=== PATIENT | male | born 1995 | race Caucasian/White ===

== ENCOUNTER 2017-10-22 20:05 | Inpatient (IN) | payer SELFPAY ==
[~2017-10-22] VITALS: Ht 172.7 cm; Wt 65.0 kg
[2017-10-22 20:12] VITALS: BP 172/110; PULSE 73; RESP 20; TEMP 98.1; O2SAT 100
[2017-10-22 20:22] VITALS: O2SAT 99
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
[2017-10-22] MEDS ORDERED: GENTAMICIN INJ 80 MG in SODIUM CHLORIDE 0.9% INJ 100 ML IV ONE (20:30)
[2017-10-22] MEDS ORDERED: ONDANSETRON HCL 4 MG/2 ML VIAL IV PUSH ONE (20:30)
[2017-10-22] MEDS ORDERED: GENTAMICIN 80 MG PREMIX 100 ML IV ONE (20:30)
[2017-10-22] MEDS ORDERED: ceFAZolin 2 GM PREMIX 50 ML IV ONE (20:30)
[2017-10-22] MEDS ORDERED: DIPHTH/TETANUS/ACEL PERTUSSIS (BOOSTER) 0.5 ML VIAL/PFS IM ONE (20:30)
[2017-10-22] MEDS ORDERED: SODIUM CHLORIDE 0.9% FLUSH 10 ML FLUSH IVF PRN (20:30)
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
[2017-10-22] MEDS ORDERED: IOHEXOL 350 MG/ML 10 ML VIAL (for RAD DIAG) IVCONTRAST ONE (20:46)
[2017-10-22 20:52] LABS: AUTOMATED NEUTROPHIL # 11.5 TH/MM3 (1.8-7.7); BASOPHIL # 0.1 TH/MM3 (0-0.2); BASOPHIL % 0.5 % (0.0-2.0); EOSINOPHIL # 0.4 TH/MM3 (0-0.4); EOSINOPHIL % 2.2 % (0.0-4.0); HEMATOCRIT 47.8 % (39.0-51.0); HEMOGLOBIN 16.6 GM/DL (13.0-17.0); LYMPH % 26.8 % (9.0-44.0); MEAN CELL VOLUME 93.2 FL (80.0-100.0); MEAN CORPUSCULAR HEMOGLOBIN 32.3 PG (27.0-34.0); MEAN CORPUSCULAR HGB CONC 34.7 % (32.0-36.0); MEAN PLATELET VOLUME 7.1 FL (7.0-11.0); MONO % 9.6 % (0.0-8.0); MONOCYTE # 1.8 TH/MM3 (0-0.9); NEUT % 60.9 % (16.0-70.0); PLATELET COUNT 393 TH/MM3 (150-450); RED BLOOD COUNT 5.13 MIL/MM3 (4.50-5.90); WHITE BLOOD COUNT 18.8 TH/MM3 (4.0-11.0)
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
[2017-10-22] MEDS ORDERED: POTASSIUM CHLOR 10 MEQ PREMIX 100 ML IV ONE (21:00)
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
[2017-10-22 21:12] VITALS: BP 185/91; PULSE 65; RESP 16; O2SAT 99
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
[2017-10-22] MEDS ORDERED: MORPHINE SULFATE 2 MG/ML INJ IV PUSH ONE (21:45)
[2017-10-22 22:26] VITALS: BP 169/81; PULSE 52; RESP 20; O2SAT 97
[2017-10-22] MEDS ORDERED: MISCELLANEOUS NURSING INFORMATION XX SCH (22:30)
[2017-10-22] MEDS ORDERED: CHLORHEXIDINE GLUCONATE 2 % 1 PACK (2 CLOTHS) TOP PRN (22:30)
[2017-10-22] MEDS ORDERED: ACETAMINOPHEN 1000 MG/100 ML 100 ML IV SCH (22:30)
[2017-10-22] MEDS ORDERED: ONDANSETRON HCL 4 MG/2 ML VIAL IV PUSH PRN (22:30)
[2017-10-22] MEDS ORDERED: HYDROmorphone HCL PF 2 MG/ML VIAL IV PRN (22:45)
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
[2017-10-22] MEDS: HYDROmorphone HCL PF 2 MG/ML VIAL IV PRN (23:07)
[2017-10-22] MEDS: ACETAMINOPHEN 1000 MG/100 ML 100 ML IV SCH (23:08)
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
[2017-10-22 23:12] VITALS: BP 160/84; PULSE 56; RESP 18; O2SAT 98
[2017-10-23] MEDS: LACTATED RINGER'S 1000 ML INJ 1,000 ML IV SCH ×4 (00:53→23:01)
[2017-10-23 01:14] VITALS: BP 175/79; PULSE 68; RESP 16; O2SAT 96
[2017-10-23] MEDS: HYDROmorphone HCL PF 2 MG/ML VIAL IV PRN ×2 (03:24→07:45)
[2017-10-23 04:00] VITALS: BP 174/83; PULSE 53; RESP 16; O2SAT 97
[2017-10-23] MEDS ORDERED: CHLORHEXIDINE GLUCONATE 2 % 1 PACK (2 CLOTHS) TOP SCH (04:00)
[2017-10-23 04:20] LABS: AUTOMATED NEUTROPHIL # 16.4 TH/MM3 (1.8-7.7); BASOPHIL % 0.2 % (0.0-2.0); EOSINOPHIL % 0.1 % (0.0-4.0); HEMATOCRIT 45.1 % (39.0-51.0); HEMOGLOBIN 15.9 GM/DL (13.0-17.0); LYMPH % 8.1 % (9.0-44.0); LYMPHOCYTE # 1.7 TH/MM3 (1.0-4.8); MEAN CELL VOLUME 93.1 FL (80.0-100.0); MEAN CORPUSCULAR HEMOGLOBIN 32.8 PG (27.0-34.0); MEAN CORPUSCULAR HGB CONC 35.2 % (32.0-36.0); MEAN PLATELET VOLUME 7.4 FL (7.0-11.0); MONO % 12.5 % (0.0-8.0); MONOCYTE # 2.6 TH/MM3 (0-0.9); NEUT % 79.1 % (16.0-70.0); PLATELET COUNT 325 TH/MM3 (150-450); RED BLOOD COUNT 4.85 MIL/MM3 (4.50-5.90); RED CELL DISTRIBUTION WIDTH 12.8 % (11.6-17.2); WHITE BLOOD COUNT 20.8 TH/MM3 (4.0-11.0)
[2017-10-23 04:30] LABS: BICARBONATE 27.7 MEQ/L (21.0-32.0); CREATININE 0.9 MG/DL (0.60-1.30)
[2017-10-23] MEDS: ACETAMINOPHEN 1000 MG/100 ML 100 ML IV SCH ×3 (05:00→23:00)
[2017-10-23 06:26] VITALS: BP 175/73; PULSE 55; RESP 16; O2SAT 98
[2017-10-23 07:05] VITALS: BP 175/73; PULSE 70; RESP 18; O2SAT 97
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
[2017-10-23] MEDS: DOCUSATE SODIUM 100 MG CAP PO SCH ×2 (09:00→21:00)
[2017-10-23 09:19] LABS: BANDS 5 % (0-6); LYMPHOCYTES 5 % (9-44); MONOCYTES 10 % (0-8); NEUTROPHIL # MANUAL DIFF 17.7 TH/MM3 (1.8-7.7); POLYS (SEG NEUTROPHILS) 80 % (16-70)
[2017-10-23 10:02] VITALS: BP 157/67; TEMP 98.4
[2017-10-23] MEDS ORDERED: fentaNYL CITRATE 250 MCG/5 ML AMP ONE ×2 (10:45)
[2017-10-23] MEDS ORDERED: MORPHINE SULFATE 4 MG/ML INJ ONE (10:53)
[2017-10-23] MEDS ORDERED: GENTAMICIN SULFATE 80 MG/2 ML VIAL ONE (11:04)
[2017-10-23] MEDS ORDERED: ONDANSETRON HCL 4 MG/2 ML VIAL IV ONE (12:00)
[2017-10-23] MEDS ORDERED: STERILE WATER FOR INJECTION 20 ML VIAL IV ONE (12:00)
[2017-10-23] MEDS ORDERED: DEXAMETHASONE SOD PHOS 4 MG/ML VIAL IV ONE (12:00)
[2017-10-23] MEDS ORDERED: PROPOFOL 200 MG/20 ML AMP IV ONE (12:00)
[2017-10-23] MEDS ORDERED: NEOSTIGMINE 5 MG/5 ML SYRINGE IV PUSH ONE (12:00)
[2017-10-23] MEDS ORDERED: LACTATED RINGER'S 1000 ML INJ 1,000 ML IV ONE (12:00)
[2017-10-23] MEDS ORDERED: LIDOCAINE HCL 1% PF 5 ML SYRINGE OTHER ONE (12:00)
[2017-10-23] MEDS ORDERED: GLYCOPYRROLATE 1 MG/5 ML SYRINGE IV PUSH ONE (12:00)
[2017-10-23] MEDS ORDERED: ROCURONIUM INJ 50 MG/5 ML SYRINGE IV PUSH ONE (12:00)
[2017-10-23] MEDS ORDERED: VANCOMYCIN HCL 1000 MG VIAL IV ONE (12:03)
[2017-10-23] MEDS ORDERED: VANCOMYCIN 1,000 MG/NS 250 ML IV ONE ×2 (12:15)
--- NOTE | 2017-10-23 12:23 | PD.OP ---
cc: Alexander Flores MD Operative Report Date of Surgery: Oct 23, 2017 Preoperative Diagnosis: Open right tibia shaft fracture, closed right ankle medial malleolus fracture Postoperative Diagnosis: Procedure: Irrigation and debridement of open right tibia fracture, intramedullary nail fixation right tibia, stress exam of syndesmosis under anesthesia, close treatment of right ankle medial malleolus fracture Surgeon: Alexander Flores Electrical Transmission Engineer(s): BEBE Hough PA-C The surgical procedure was assisted by my physician medical receptionist medical assistant. My P.A. presence was necessary throughout this case for the manipulation and positioning of the surgical extremity. My P.A. was assisting me throughout the duration of this procedure. The skill set of a physician medical receptionist medical assistant was medically necessary to complete this procedure. During the surgical case the surgical assistant was working at the back table and the physician medical receptionist medical assistant was directly assisting me. Operation and Findings: Implants: ITS [10]mm x [330]mm tibial nail Plan of activity: Nonweightbearing Patient was seen and examined preoperatively. An informed consent was obtained from patient after detailed discussion of risk and benefits. Risks of surgery include bleeding, infection, painful hardware, nonunion, malunion, leg length discrepancy, need for hardware removal, and medical complications associated with anesthesia including blood clots, stroke, heart attack, and were discussed. Operative site was marked. Patient was brought to the operating room placed on or table. Patient received IV antibiotics and was given IV sedation GETA. Operative leg was prepped with alcohol Hibiclens and draped in usual sterile fashion. Timeout procedure was performed Procedure began irrigation and debridement of open fracture. Of the dramatic laceration was extended proximally and distally. Overall the wound appeared to be very clean. Skin subcutaneous tissue and fascia were sharply debrided. Curettes were used to debride bone. Wound was now thoroughly irrigated with 3 L of sterile saline. Next attention was turned towards reduction of fracture. 2 small incisions were made around the fracture site. A percutaneous clamp was placed. This was a segmental type fracture. An additional clamp was placed along the distal fracture. Traction was applied. Fracture was reduced. The fracture reduced and excellent alignment was achieved. Fracture clamp was used to aid in reduction. Next a 3 cm incision was made proximal to the patella. Quadriceps tendon was split in line with fibers. Cannulas were placed in the patellofemoral joint to protect the articular surface at all times. A guidepin was placed into the tibia and advanced in the tibial canal. Fluoroscopy was used to confirm appropriate guidepin placement. An opening reamer was used to open the tibial canal. A ball-tipped guidewire was advanced down the tibial canal. Guidepin was passed across the fracture site into the center of the distal tibia. Fluoroscopy confirmed guidepin placement. The nail length was now measured. The fracture was now held in a reduced position and the canal was reamed. The canal was reamed up to appropriate size. A ITS nail was now selected. Next the nail was fully seated. Using perfect [place] technique 2 distal interlocking screws were placed. Using the insertion handle as a guide 2 proximal interlocking screws were placed. Fluoroscopy confirmed excellent of fracture with well-placed hardware. Incisions and the knee joint were thoroughly irrigated with sterile saline. The traumatic laceration was closed with 3-0 PDS and 3-0 nylon. Fascia was closed with #1 Vicryl, subcutaneous tissues closed with 3-0 Vicryl and skin was closed with chirag. Sterile dressings were applied. Patient was awakened and transferred to recovery in stable condition. Alexanedr Flores MD Oct 23, 2017 12:23
[2017-10-23] MEDS ORDERED: diphenhydrAMINE HCL 25 MG CAP PO PRN (12:30)
[2017-10-23] MEDS ORDERED: Post-op Orders (for Pharmacy) XX ONE (12:30)
[2017-10-23] MEDS ORDERED: DO NOT ADM ANY ANTICOAGULANT DRUGS PRN (12:51)
[2017-10-23] MEDS: GENTAMICIN 80 MG PREMIX 100 ML IV SCH ×2 (13:00→22:59)
[2017-10-23] MEDS: CALCIUM/VITAMIN D 250 MG/125 U TAB PO SCH (13:00)
[2017-10-23] MEDS ORDERED: ENALAPRILAT 1.25 MG/ML VIAL ONE (13:03)
[2017-10-23] MEDS ORDERED: *morphine SULFATE 4 MG/ML PERIprocedure ONLY ONE ×2 (13:08→13:51)
[2017-10-23] MEDS ORDERED: *MEPERIDINE 25 MG INJ VIAL PERIprocedural Use ONLY ONE (13:16)
--- NOTE | 2017-10-23 13:42 | RADRPT ---
EXAM DATE/TIME: 10/23/2017 12:13 [facility] COMPARISON: TIBIA/FIBULA RIGHT (AP/LAT), October 22, 2017, 20:59. INDICATIONS : Right tibia IM gail. MEDICAL HISTORY : None. SURGICAL HISTORY : None. ENCOUNTER: Initial ACUITY: 1 day PAIN SCORE: Non-responsive. LOCATION: Right tibia FINDINGS: Status post internal fixation of the tibia. There is good position and alignment of fracture fragment s. There is an intramedullary gail in place. CONCLUSION: Good position and alignment on this postoperative study. Gualberto Pierre MD on October 23, 2017 at 13:40 Board Certified Radiologist. This report was verified electronically.
[2017-10-23] MEDS: KETOROLAC TROMETHAMINE 30 MG/ML (IVP) VIAL IVP SCH ×2 (14:00→23:00)
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
[2017-10-23] MEDS ORDERED: HYDROmorphone HCL PF 2 MG/ML VIAL ONE (14:32)
[2017-10-23] MEDS: ceFAZolin 2 GM PREMIX 50 ML IV SCH (19:59)
[2017-10-23 20:10] VITALS: BP 149/58; PULSE 86; RESP 16; TEMP 98.1; O2SAT 97
[2017-10-23] MEDS: MORPHINE SULFATE 4 MG/ML INJ IV PUSH PRN (20:42)
[2017-10-24] VITALS (9 sets, daily range): BP systolic 117–161; BP diastolic 47–82; PULSE 55–85; RESP 16–19; TEMP 97.4–99.1; O2SAT 97–100
[2017-10-24] MEDS: MORPHINE SULFATE 4 MG/ML INJ IV PUSH PRN ×3 (03:36→21:44)
[2017-10-24] MEDS: ceFAZolin 2 GM PREMIX 50 ML IV SCH ×3 (03:37→17:56)
[2017-10-24 04:38] LABS: BICARBONATE 28.1 MEQ/L (21.0-32.0); CALCIUM 8.5 MG/DL (8.5-10.1); CREATININE 0.77 MG/DL (0.60-1.30)
[2017-10-24 04:42] LABS: AUTOMATED NEUTROPHIL # 7.9 TH/MM3 (1.8-7.7); BASOPHIL % 0.3 % (0.0-2.0); EOSINOPHIL # 0.4 TH/MM3 (0-0.4); EOSINOPHIL % 3.3 % (0.0-4.0); HEMATOCRIT 36.3 % (39.0-51.0); HEMOGLOBIN 12.8 GM/DL (13.0-17.0); LYMPH % 20.3 % (9.0-44.0); LYMPHOCYTE # 2.6 TH/MM3 (1.0-4.8); MEAN CELL VOLUME 93.3 FL (80.0-100.0); MEAN CORPUSCULAR HEMOGLOBIN 32.9 PG (27.0-34.0); MEAN CORPUSCULAR HGB CONC 35.3 % (32.0-36.0); MEAN PLATELET VOLUME 7.1 FL (7.0-11.0); MONO % 14.5 % (0.0-8.0); MONOCYTE # 1.9 TH/MM3 (0-0.9); NEUT % 61.6 % (16.0-70.0); PLATELET COUNT 284 TH/MM3 (150-450); RED BLOOD COUNT 3.89 MIL/MM3 (4.50-5.90); RED CELL DISTRIBUTION WIDTH 12.7 % (11.6-17.2); WHITE BLOOD COUNT 12.9 TH/MM3 (4.0-11.0)
[2017-10-24] MEDS: ACETAMINOPHEN 1000 MG/100 ML 100 ML IV SCH ×4 (05:00→23:00)
[2017-10-24] MEDS: ACETAMINOPHEN/HYDROcodone 325 MG/10 MG TAB PO PRN ×4 (06:12→20:18)
[2017-10-24] MEDS: GENTAMICIN 80 MG PREMIX 100 ML IV SCH ×3 (06:13→20:18)
[2017-10-24] MEDS: KETOROLAC TROMETHAMINE 30 MG/ML (IVP) VIAL IVP SCH (06:14)
[2017-10-24] MEDS ORDERED: XARE10TA PO (06:53)
[2017-10-24] MEDS ORDERED: HYDR-3580 PO (06:53)
[2017-10-24] MEDS: DOCUSATE SODIUM 100 MG CAP PO SCH ×2 (09:15→20:18)
[2017-10-24] MEDS: CALCIUM/VITAMIN D 250 MG/125 U TAB PO SCH ×3 (09:16→17:57)
--- NOTE | 2017-10-24 09:20 | PD.ORT.PN ---
Subjective Subjective Remarks POD 1 s/p IMN right tibia s/p right medial malleolus fx treated nonop doing well. pain controlled. ouit of bed with walker. overall no complaints Objective Vitals Vital Signs Date Time Temp Pulse Resp B/P (MAP) Pulse Ox O2 Delivery O2 Flow Rate FiO2 10/24/17 08:00 98.1 55 18 129/57 (81) 99 10/24/17 04:10 98.8 67 16 131/61 (84) 99 10/24/17 00:05 99.1 80 16 142/68 (92) 98 10/23/17 20:10 98.1 86 16 149/58 (88) 97 10/23/17 18:00 54 16 132/60 (84) 94 Room Air 10/23/17 17:00 56 16 144/65 (91) 93 Room Air 10/23/17 15:45 98.2 80 14 139/63 (88) 93 Nasal Cannula 3 10/23/17 15:30 98.2 85 14 185/77 (113) 94 Nasal Cannula 3 10/23/17 15:15 98.2 77 14 161/73 (102) 92 Nasal Cannula 3 10/23/17 15:00 98.2 57 14 167/69 (101) 92 Nasal Cannula 3 10/23/17 14:45 98.2 61 14 164/76 (105) 92 Nasal Cannula 3 10/23/17 14:30 98.2 83 14 163/74 (103) 96 Nasal Cannula 3 10/23/17 14:15 98.2 59 14 164/79 (107) 93 Nasal Cannula 3 10/23/17 14:00 98.2 66 14 163/77 (105) 93 Nasal Cannula 3 10/23/17 13:45 98.2 61 14 168/78 (108) 100 Nasal Cannula 3 10/23/17 13:30 98.2 61 14 174/85 (114) 100 Nasal Cannula 3 10/23/17 13:15 98.2 63 14 170/86 (114) 100 Nasal Cannula 3 10/23/17 13:00 98.2 61 14 183/91 (121) 100 Nasal Cannula 3 10/23/17 12:52 98.2 69 14 155/74 (101) 100 Nasal Cannula 3 10/23/17 10:02 98.4 68 20 157/67 (97) 98 I/O 10/23/17 10/23/17 10/23/17 10/24/17 10/24/17 10/24/17 07:00 15:00 23:00 07:00 15:00 23:00 Intake Total 300 ml 1300 ml 1027 ml 360 ml Output Total 350 ml 75 ml 800 ml Balance -50 ml 1225 ml 227 ml 360 ml Intake Oral 600 ml 360 ml IV Total 300 ml 427 ml Other 1300 ml Output Urine Total 350 ml 800 ml Estimated Blood Loss 75 ml # Voids 2 2 # Bowel Movements 0 0 Result Diagram: 10/24/17 0336 10/24/17 0336 Imaging Last [address] 10/22/172016 Signed Impressions: Service Date/Time: Sunday, October 22, 2017 20:36 - CONCLUSION: 1. Negative noncontrast CT brain. Jaison Sanchez MD Chest CT 10/22/172016 Signed Impressions: Service Date/Time: Sunday, October 22, 2017 20:41 - CONCLUSION: Negative trauma CT thorax. Jaison Sanchez MD Cervical Spine CT 10/22/172016 Signed Impressions: Service Date/Time: Sunday, October 22, 2017 20:36 - CONCLUSION: No evidence of compression deformity, fracture, or spondylolisthesis. Jaison Sanchez MD Abdomen/Pelvis CT 10/22/172016 Signed Impressions: Service Date/Time: Sunday, October 22, 2017 20:41 - CONCLUSION: 1. Negative trauma CT abdomen/pelvis. Jaison Sanchez MD Objective Remarks RLE: dressings clean and dry. intact. +short leg splint. NVI Assessment & Plan Assessment and Plan 1) Right open tibia and fibula midshaft segmental fractures s/p IMN - POD 1 -NWB -maintain splint at all times -daily dressing changes of knee -will need 48hrs of IV Abx due to open fracture -plan for DC home Friday after Abx completed -f/u with Jose or PA in 2 weeks Vernon Dunne/[employer] Oct 24, 2017 09:20
[2017-10-24] MEDS ORDERED: WALKER/ADULT/FO1 MIS (09:21)
[2017-10-24] MEDS ORDERED: ENOXAPARIN SODIUM 40 MG/0.4 ML SYRINGE SQ SCH (12:00)
[2017-10-24] MEDS: LACTATED RINGER'S 1000 ML INJ 1,000 ML IV SCH ×3 (13:03→20:15)
--- NOTE | 2017-10-24 14:29 | HHI.PR ---
Objective Vitals/I&O Vital Signs Date Time Temp Pulse Resp B/P (MAP) Pulse Ox O2 Delivery O2 Flow Rate FiO2 10/24/17 12:00 97.4 64 18 117/47 (70) 98 10/23/17 18:00 Room Air 10/23/17 15:45 3 Labs Laboratory Tests Test 10/24/17 03:36 White Blood Count 12.9 Red Blood Count 3.89 Hemoglobin 12.8 Hematocrit 36.3 Mean Corpuscular Volume 93.3 Mean Corpuscular Hemoglobin 32.9 Mean Corpuscular Hemoglobin Concent 35.3 Red Cell Distribution Width 12.7 Platelet Count 284 Mean Platelet Volume 7.1 Neutrophils (%) (Auto) 61.6 Lymphocytes (%) (Auto) 20.3 Monocytes (%) (Auto) 14.5 Eosinophils (%) (Auto) 3.3 Basophils (%) (Auto) 0.3 Neutrophils # (Auto) 7.9 Lymphocytes # (Auto) 2.6 Monocytes # (Auto) 1.9 Eosinophils # (Auto) 0.4 Basophils # (Auto) 0.0 CBC Comment DIFF FINAL Differential Comment Blood Urea Nitrogen 13 Creatinine 0.77 Random Glucose 96 Calcium Level 8.5 Sodium Level 136 Potassium Level 4.0 Chloride Level 102 Carbon Dioxide Level 28.1 Anion Gap 6 Estimat Glomerular Filtration Rate 126 Radiology Last Impressions Tibia/Fibula X-Ray 10/23/17 0000 Signed Impressions: Service Date/Time: October 12:13 - CONCLUSION: Good position and alignment on this postoperative study. Gualberto Pierre MD Head CT 10/22/172016 Signed Impressions: Service Date/Time: Sunday, October 22, 2017 20:36 - CONCLUSION: 1. Negative noncontrast CT brain. Jaison Sanchez MD Chest CT 10/22/172016 Signed Impressions: Service Date/Time: Sunday, October 22, 2017 20:41 - CONCLUSION: Negative trauma CT thorax. Jaison Sanchez MD Cervical Spine CT 10/22/172016 Signed Impressions: Service Date/Time: Sunday, October 22, 2017 20:36 - CONCLUSION: No evidence of compression deformity, fracture, or spondylolisthesis. Jaison Sanchez MD Abdomen/Pelvis CT 10/22/172016 Signed Impressions: Service Date/Time: Sunday, October 22, 2017 20:41 - CONCLUSION: 1. Negative trauma CT abdomen/pelvis. Jaison Sanchez MD Lower Extremity CT 10/22/17 0000 Signed Impressions: Service Date/Time: Sunday, October 22, 2017 20:46 - CONCLUSION: Comminuted and displaced fracture of the midshaft of the tibia large butterfly fragment and significant medial displacement of the proximal fracture fragment. Numerous small flecks of gas throughout the soft tissues suggest that this is an open fracture, however, no definite skin discontinuity seen radiographically. Jaison Sanchez MD Femur X-Ray 10/22/17 0000 Signed Impressions: Service Date/Time: Sunday, October 22, 2017 20:57 - CONCLUSION: No fracture seen. Jaison Sanchez MD Chest X-Ray 10/22/17 0000 Signed Impressions: Service Date/Time: Sunday, October 22, 2017 22:59 - CONCLUSION: No acute abnormality is identified. Lamberto Bhandari MD A/P Assessment and Plan OPEN RIGHT tibia fx Orthopedics consulted and assisting in management and care 10/23: I&D RIGHT open tibia fx. IM Nail RIGHT tibia. Pain management Ice and elevate PT and OT ordered NWB RLE Encourage out of bed Dressings per orthopedics Antibiotics per orthopedics Lovenox for DVT prophylaxis Lillian Collins Oct 24, 2017 14:29
[2017-10-24] MEDS ORDERED: MAGNESIUM HYDROXIDE SUSP 30 ML CUP PO PRN (23:45)
[2017-10-25] MEDS: ACETAMINOPHEN/HYDROcodone 325 MG/10 MG TAB PO PRN ×4 (01:10→10:52)
[2017-10-25] MEDS: ceFAZolin 2 GM PREMIX 50 ML IV SCH ×3 (01:10→10:52)
[2017-10-25 04:00] VITALS: PULSE 69
[2017-10-25 04:15] VITALS: BP 157/62; PULSE 70; RESP 16; TEMP 98.1; O2SAT 96
[2017-10-25] MEDS: ACETAMINOPHEN 1000 MG/100 ML 100 ML IV SCH (04:22)
[2017-10-25] MEDS: GENTAMICIN 80 MG PREMIX 100 ML IV SCH (06:22)
--- NOTE | 2017-10-25 07:34 | PD.ORT.PN ---
Subjective Subjective Remarks Moderate right leg pain. Some throbbing. Doing 'ok'. No new complaints. Questions about discharge today. Objective Vitals Vital Signs Date Time Temp Pulse Resp B/P (MAP) Pulse Ox O2 Delivery O2 Flow Rate FiO2 10/25/17 04:15 98.1 70 16 157/62 (93) 96 10/24/17 23:53 80 10/24/17 23:49 98.0 64 16 161/56 (91) 97 10/24/17 21:46 73 10/24/17 20:00 97.6 75 17 158/63 (94) 100 10/24/17 16:00 97.4 85 19 137/82 (100) 98 10/24/17 12:00 97.4 64 18 117/47 (70) 98 10/24/17 08:00 98.1 55 18 129/57 (81) 99 I/O 10/24/17 10/24/17 10/24/17 10/25/17 10/25/17 10/25/17 07:00 15:00 23:00 07:00 15:00 23:00 Intake Total 360 ml 50 ml 360 ml Balance 360 ml 50 ml 360 ml Intake Oral 360 ml 360 ml IV Total 50 ml # Voids 2 3 1 # Bowel Movements 0 0 Result Diagram: 10/24/17 0336 10/24/17 0336 Imaging Last [address] 10/22/172016 Signed Impressions: Service Date/Time: Sunday, October 22, 2017 20:36 - CONCLUSION: 1. Negative noncontrast CT brain. Jaison Sanchez MD Chest CT 10/22/172016 Signed Impressions: Service Date/Time: Sunday, October 22, 2017 20:41 - CONCLUSION: Negative trauma CT thorax. Jaison Sanchez MD Cervical Spine CT 10/22/172016 Signed Impressions: Service Date/Time: Sunday, October 22, 2017 20:36 - CONCLUSION: No evidence of compression deformity, fracture, or spondylolisthesis. Jaison Sanchez MD Abdomen/Pelvis CT 10/22/172016 Signed Impressions: Service Date/Time: Sunday, October 22, 2017 20:41 - CONCLUSION: 1. Negative trauma CT abdomen/pelvis. Jaison Sanchez MD Objective Remarks Laying in bed NAD VSS RLE Right posterior splint intact, some swelling distal, no erythema Wiggles toes freely, +nvi, +sens - Seen and evaluated by Dr. Butch Owen Assessment & Plan Ortho Post Op Day #: 2 Problem List: Assessment and Plan 1) Right open tibia and fibula midshaft segmental fractures s/p IMN - POD 2 -NWB -maintain splint at all times -daily dressing changes of knee - Xarelto at discharge. -Finish 48hrs of IV Abx due to open fracture -Ok to d/c home today -f/u with Jose or RAHEEM in 2 weeks Chelsea Rothman Oct 25, 2017 07:34
[2017-10-25 08:00] VITALS: BP 139/70; PULSE 65; RESP 18; TEMP 97.2; O2SAT 97
[2017-10-25] MEDS: DOCUSATE SODIUM 100 MG CAP PO SCH (08:18)
[2017-10-25] MEDS: CALCIUM/VITAMIN D 250 MG/125 U TAB PO SCH (08:18)
[2017-10-25 09:32] VITALS: RESP 18
== END 2017-10-25 12:02 | disposition home or self-care (01) | DRG 494 ==
LOC: NEPC 20:05 → EDBD 21:26 → NEDA 21:26 → NEDH 10-23 01:47 → N06B 10-23 18:44
PROVIDERS: ADMIT Surgery Trauma Surgery; ATTEND Orthopaedic Surgery Orthopaedic Trauma
PROC: 0QSG06Z Reposition Right Tibia with Intramedullary Internal Fixation Device, Open Approach (ICD-10-PCS; principal; 2017-10-23 11:01)
DX: S82.251B Displaced comminuted fracture of shaft of right tibia, initial encounter for open fracture type I or II (principal); S82.51XA Displaced fracture of medial malleolus of right tibia, initial encounter for closed fracture; V23.4XXA Motorcycle driver injured in collision with car, pick-up truck or van in traffic accident, initial encounter; Y92.410 Unspecified street and highway as the place of occurrence of the external cause; Z88.2 Allergy status to sulfonamides
CPT/HCPCS: 70450; 71045; 71260; 72125; 73551; 73590; 73701; 74177; 76000; 80048; 80307; 85007; 85025; 85027; 85610; 85730; 86850; 86900; 86901; 90715; 94150; C1713; J0131; J0690; J1100; J1170; J1580; J1650; J1885; J2175; J2270; J2405; J2710; J3010; J3480; J7120; Q9967